=== PATIENT | female | born 1945 | race Caucasian/White ===

== ENCOUNTER 2020-01-29 10:48 | Emergency (ER) | payer MEDICARE, OTHER ==
[~2020-01-29] VITALS: Ht 167.6 cm; Wt 52.6 kg
[2020-01-29] MEDS ORDERED: ATIVAN2 MG PO (11:08)
[2020-01-29] MEDS ORDERED: LOVASTATIN 20 M20 MG PO (11:08)
[2020-01-29] MEDS ORDERED: LISINOPRIL-HCT1 EAC2 PO (11:08)
[2020-01-29] MEDS ORDERED: LEVO-T100 MCG PO (11:09)
[2020-01-29] MEDS ORDERED: NORVASC 2.5 MG2.5 M1 PO (11:09)
[2020-01-29] MEDS ORDERED: AZULFIDINE500 MG PO (11:09)
[2020-01-29] MEDS ORDERED: IBUPROFEN 600600 M1 PO (11:10)
[2020-01-29] MEDS ORDERED: ASA81BEC PO (11:10)
[2020-01-29] MEDS ORDERED: PAXIL40 MG PO (11:10)
[2020-01-29 11:23] LABS: ABSOLUTE BASOPHILS 0.1 thou/uL (0.0-0.2); ABSOLUTE LYMPHOCYTES 1.4 thou/uL (0.8-5.3); ABSOLUTE MONOCYTES 0.3 thou/uL (0.0-1.2); ABSOLUTE NEUTROPHILS 3.2 thou/uL (1.6-8.1); EOSINOPHILS 0.3 %; HEMATOCRIT 38.6 % (37.0-47.0); HEMOGLOBIN 12.8 gm/dL (12.0-15.0); MCH 28.4 pg (26.0-34.0); MCHC 33.2 g/dL (28.0-37.0); MCV 85.6 fL (80.0-100.0); MONOCYTES 6.6 %; MPV 7.1 fl. (7.2-11.1); NUCLEATED RBCS 0 /100WBC; PLATELET COUNT* 270 thou/uL (150-400); POLYS 64.1 %; RBC 4.51 mil/uL (4.20-5.00); RDW-CV 14.7 % (10.5-14.5); WBC 5.1 thou/uL (4.0-11.0)
[2020-01-29 11:36] LABS: CALCIUM 10.5 mg/dL (8.5-10.1); CREATININE 0.8 mg/dL (0.6-1.3); POTASSIUM 4.3 mmol/L (3.5-5.1)
[2020-01-29 11:40] LABS: ALBUMIN 3.4 g/dL (3.4-5.0); TOTAL BILIRUBIN 0.4 mg/dL (<0.1-1.0); TOTAL PROTEIN 7.8 g/dL (6.4-8.2)
[2020-01-29] MEDS ORDERED: NORCO 5-325 TA1 EAC2 PO (13:03)
[2020-01-29] MEDS ORDERED: ZOFRAN ODT4 MG SUBLING (13:03)
[2020-01-29 13:23] LABS: URINE BILIRUBIN NEGATIVE (Negative); URINE BLOOD TRACE (Negative); URINE CLARITY CLEAR; URINE COLOR YELLOW; URINE GLUCOSE-RANDOM NEGATIVE (Negative); URINE KETONES NEGATIVE (Negative); URINE LEUKOCYTES-REFLEX NEGATIVE (Negative); URINE NITRITE-REFLEX NEGATIVE (Negative); URINE PROTEIN NEGATIVE (Negative); URINE UROBILINOGEN 0.2 E.U./dl (0.2-1.0)
[2020-01-29 13:27] VITALS: BP 137/61
--- NOTE | 2020-01-29 17:21 | EKG ---
[place] [address] ELECTROCARDIOGRAM REPORT Name: ANN-MARIE JOHNSON Room: [facility]#: [id number] Admission: 01/29/20 Attend Phys: Discharge: 01/29/20 Date of : 45 Date of Service: 01/29/20 1120 Report #: [id number] THIS REPORT FOR: //name// [facility] ED Test Date: 2020-01-29 Test Time: 11:20:24 Pat Name: ANN-MARIE JOHNSON Department: Room: Gender: Multi Skilled Operator: RUIZ : 1945 Requested By: Mehdi Cronin Order Number: [id number] MD: Vladislav Felix Measurements Intervals [place] Rate: 64 P: 4 MT: 152 QRS: 0 QRSD: 88 T: 30 QT: 421 QTc: 435 Interpretive Statements Sinus rhythm No previous ECG available for comparison Electronically Signed On 01-29-2020 17:21:47 ANIMAL PHYSIOLOGIST by Vladislav Felix [email or web address] <ELECTRONICALLY SIGNED> By: Vladislav Felix MD, LOCATED WITHIN [facility] 01/29/20 1721 1120 Vladislav Felix MD, FACC /EPI
== END 2020-01-29 13:29 | disposition home or self-care (01) ==
LOC: M.ERS 10:48
PROVIDERS: Family Medicine
DX: K59.00 Constipation, unspecified (principal); Z20.828 Contact with and (suspected) exposure to other viral communicable diseases; R11.2 Nausea with vomiting, unspecified; I10 Essential (primary) hypertension; E78.00 Pure hypercholesterolemia, unspecified; E03.9 Hypothyroidism, unspecified; Z79.899 Other long term (current) drug therapy; Z79.82 Long term (current) use of aspirin; Z88.8 Allergy status to other drugs, medicaments and biological substances; Z88.6 Allergy status to analgesic agent

== ENCOUNTER 2020-01-31 09:16 | Inpatient (IN) | payer MEDICARE, OTHER ==
[~2020-01-31] VITALS: Ht 167.6 cm; Wt 55.2 kg
[~2020-01-31 09:16] MED LIST: ASA81BEC PO; ATIVAN2 MG PO; AZULFIDINE500 MG PO; IBUPROFEN 600600 M1 PO; LEVO-T100 MCG PO; LISINOPRIL-HCT1 EAC2 PO; LOVASTATIN 20 M20 MG PO; NORCO 5-325 TA1 EAC2 PO; NORVASC 2.5 MG2.5 M1 PO; PAXIL40 MG PO; ZOFRAN ODT4 MG SUBLING
[2020-01-31 09:24] VITALS: BP 140/76
[2020-01-31 09:40] LABS: ABSOLUTE BASOPHILS 0.1 thou/uL (0.0-0.2); ABSOLUTE EOSINOPHILS 0.1 thou/uL (0.0-0.7); ABSOLUTE LYMPHOCYTES 1.8 thou/uL (0.8-5.3); ABSOLUTE MONOCYTES 0.8 thou/uL (0.0-1.2); ABSOLUTE NEUTROPHILS 4.4 thou/uL (1.6-8.1); BASOPHILS 0.7 %; EOSINOPHILS 0.8 %; HEMATOCRIT 39.5 % (37.0-47.0); HEMOGLOBIN 13.6 gm/dL (12.0-15.0); MCH 29.3 pg (26.0-34.0); MCHC 34.4 g/dL (28.0-37.0); MCV 85.4 fL (80.0-100.0); MONOCYTES 11.1 %; MPV 7.1 fl. (7.2-11.1); NUCLEATED RBCS 0 /100WBC; PLATELET COUNT* 277 thou/uL (150-400); POLYS 62.4 %; RBC 4.63 mil/uL (4.20-5.00); RDW-CV 14.5 % (10.5-14.5); WBC 7.1 thou/uL (4.0-11.0)
[2020-01-31 09:51] LABS: CALCIUM 10.6 mg/dL (8.5-10.1); CREATININE 0.8 mg/dL (0.6-1.3); POTASSIUM 4.4 mmol/L (3.5-5.1)
[2020-01-31 09:55] LABS: ALBUMIN 3.4 g/dL (3.4-5.0); TOTAL BILIRUBIN 0.5 mg/dL (<0.1-1.0); TOTAL PROTEIN 7.9 g/dL (6.4-8.2)
[2020-01-31 12:59] LABS: URINE BLOOD TRACE (Negative); URINE CLARITY CLEAR; URINE COLOR YELLOW; URINE GLUCOSE-RANDOM NEGATIVE (Negative); URINE LEUKOCYTES-REFLEX NEGATIVE (Negative); URINE NITRITE-REFLEX NEGATIVE (Negative); URINE PROTEIN NEGATIVE (Negative); URINE SPECIFIC GRAVITY >= 1.030 (1.005-1.030); URINE UROBILINOGEN 0.2 E.U./dl (0.2-1.0)
[2020-01-31 13:02] LABS: ICTOTEST (BILI CONFIRMATORY) Negative (Negative); URINE BILIRUBIN 2+ (Negative); URINE KETONES 3+ (Negative)
[2020-01-31 13:35] VITALS: BP 169/80
[2020-01-31 16:05] VITALS: BP 170/72
--- NOTE | 2020-01-31 18:07 | NUR ---
PATIENT ARRIVED FROM ER THIS AFTERNOON. PATIENT SETTLED TO ROOM. HISTORY, ASESSMENT AND VITALS COMPLETED AND DOCUMENTED. PATIENT HAS COMPLAINTS OF RUQ PAIN AND NAUSEA WITH PARTIAL RELIEF PROVIDED BY MEDICATION. PATIENT NAUSEATED WITH SMALL AMOUNTS OF CLEAR LIQUIDS. PATIENT IS UP WITH ASSIST. PATIENT DENIES ANY NEEDS AT THIS TIME. CALL LIGHT WITHIN REACH.
[2020-01-31 20:27] VITALS: BP 136/68
[2020-02-01 05:18] LABS: HEMATOCRIT 33.8 % (37.0-47.0); MCH 28.5 pg (26.0-34.0); MCHC 33.4 g/dL (28.0-37.0); MCV 85.3 fL (80.0-100.0); MPV 7.1 fl. (7.2-11.1); RBC 3.97 mil/uL (4.20-5.00); RDW-CV 14.2 % (10.5-14.5); WBC 5.3 thou/uL (4.0-11.0)
[2020-02-01 05:24] LABS: HEMOGLOBIN 11.3 gm/dL (12.0-15.0)
[2020-02-01 05:38] LABS: ALBUMIN 2.6 g/dL (3.4-5.0); CREATININE 0.8 mg/dL (0.6-1.3); MAGNESIUM 1.7 mg/dL (1.8-2.4); POTASSIUM 3.9 mmol/L (3.5-5.1); TOTAL BILIRUBIN 0.5 mg/dL (<0.1-1.0); TOTAL PROTEIN 6.3 g/dL (6.4-8.2)
[2020-02-01 07:47] VITALS: BP 136/79
--- NOTE | 2020-02-01 10:15 | NUR ---
PT.IN CHAIR AFTER GOING TO BATHROOM. SHE WAS ALERT AND ORIENTED. SAID SHE NORMALLY LIVES ALONE BUT HER ADULT GRANDSON IS STAYING WITH HER AT THIS TIME BECAUSE HE BROKE HIS FOOT AT WORK IN 3 PLACES. SHE WAS TAKING CARE OF HIM. SHE HAS A SON,ANGELIQUE AND DAUGHTER,CONNIE, THAT ARE SUPPORTIVE. NO USE OF DME. DRIVES AND IS NORMALLY INDEPENDENT. SHE WILL HAVE GALLBLADDER SURGERY TOMORROW. SHE IS CONCERNED,TEARFUL, NO BM X3-4 WEEKS. SHE IS AFRAID THEY MAY BE 'MISSING SOMETHING' IN HER TESTING. CONCERNS RELAYED TO VONNIE LARA.
--- NOTE | 2020-02-01 16:00 | NUR ---
PT'S SAT LOW IN 70'S ON RA. THEN DROPPED TO 69. 02 PUT ON AT 3L PER NC. AND SAT NOW 90%. TEXT TO DR. MDEELLIN AND ORDERS RECEIVED AND CARRIED OUT. WILL CONTINUE TO MONITOR.
[2020-02-01 16:14] VITALS: BP 98/54
--- NOTE | 2020-02-01 16:34 | EKG ---
[place] [address] ELECTROCARDIOGRAM REPORT Name: ANN-MARIE JOHNSON Room: [address] ADM IN M.R.#: [id number] Admission: 01/31/20 Attend Phys: Amelia Wade, Discharge: Date of : 45 Date of Service: 01/31/20 1219 Report #: [id number] THIS REPORT FOR: //name// [facility] ED Test Date: 2020-01-31 Test Time: 12:19:30 Pat Name: ANN-MARIE JOHNSON Department: Room: [facility] Gender: F Nurses Assistant: IWONA : 1945 Requested By: Mehdi Cronin Order Number: [id number] MD: Felipe Reyes Measurements Intervals [place] Rate: 56 P: 5 MA: 157 QRS: 9 QRSD: 95 T: 36 QT: 430 QTc: 416 Interpretive Statements Sinus rhythm Compared to ECG 01/29/2020 11:20:24 No significant changes Electronically Signed On 02-01-2020 16:34:23 STORAGE MANAGER by Felipe Reyes [email or web address] <ELECTRONICALLY SIGNED> By: Felipe Reyes MD, [facility] 02/01/20 1634 1219 1219 Felipe Reyes MD, [facility] /EPI
--- NOTE | 2020-02-01 18:09 | NUR ---
PT WAS SWABBED FOR STAT COVID. AND SWAB SENT TO LAB.
[2020-02-01 20:15] VITALS: BP 123/61
--- NOTE | 2020-02-01 21:30 | NUR ---
A&O X 4, PWD. LUNGS CLEAR, HEART TONES REG. +BS X 4 QUADS. PEDAL PULSES PRESENT NO EDEMA NOTED. C/O NOT HAVING BM X 3 WEEKS. ENEMA GIVEN WITH SOME RESULTS CONSISTENT THICK MUDDY BROWN STOOL. PT ALSO WANTED SOMETHING FOR ANXIETY AND WAS GIVEN ALPRAZOLAM 0.5MG AT 1352. AROUND 1600 SAT WAS IN 70'S THEN DROPPED TO 60'S. PUT ON 3L PER NC AND CAME BACK UP TO 90%. DR. MEDELLIN NOTIFIED AND NEW ORDERS OBTAINED AND CARRIED OUT. COVID STAT TEST DONE AND WAS NEGATIVE. C/O ABD PAIN AND RECEIVED 75MCG FENT WITH RELIEF. CALL LIGHT WITHIN REACH. WILL CONTINUE TO MONITOR.
--- NOTE | 2020-02-02 05:39 | NUR ---
PATIENT HAS REMAINED ALERT AND ORIENTED X 4 THROUGHOUT THE SHIFT AND RESTING QUIETLY ON HOURLY ROUNDS. HAS HAD 3 LIQUID BM'S THIS SHIFT AFTER ENEMA YESTERDAY. IVF'S AND ANTIBIOTICS PER ORDER. VITAL SIGNS STABLE ON 3L/MIN. O2 SATS 94-96%. NPO AT MIDNIGHT FOR SURGERY TODAY. RELATED TO LOW BLOOD SUGARS YESTERDAY A BEDSIDE CHECK WAS DONE THIS AM. [address]. [address]AGE [address] VERDIN WAS RECEIVED AT 0534 REGARDING NPO STATUS AND LOW BLOOD SUGAR. MAGNESIUM 1.7. REPLACEMENT IN PROGRESS. CONTINUE TO MONITOR.
[2020-02-02 07:50] VITALS: BP 166/64
[2020-02-02 09:25] LABS: HEMATOCRIT 32.6 % (37.0-47.0); HEMOGLOBIN 10.9 gm/dL (12.0-15.0); MCH 28.7 pg (26.0-34.0); MCHC 33.4 g/dL (28.0-37.0); MCV 85.8 fL (80.0-100.0); MPV 7.6 fl. (7.2-11.1); RBC 3.8 mil/uL (4.20-5.00); RDW-CV 14.1 % (10.5-14.5); WBC 5.4 thou/uL (4.0-11.0)
[2020-02-02 09:34] LABS: ALBUMIN 2.3 g/dL (3.4-5.0); CREATININE 0.8 mg/dL (0.6-1.3); POTASSIUM 3.6 mmol/L (3.5-5.1); TOTAL BILIRUBIN 0.4 mg/dL (<0.1-1.0); TOTAL PROTEIN 5.2 g/dL (6.4-8.2)
--- NOTE | 2020-02-02 15:28 | NUR ---
PT TAKEN TO SURGERY VIA BED BY SURGERY RN AT 1528.
--- NOTE | 2020-02-02 19:01 | 2DMMODE ---
[place] [address] 2 D/M-MODE ECHOCARDIOGRAM Name: ANN-MARIE JOHNSON Room: [address] IN [facility]#: [id number] Admission: 01/31/20 Attend Phys: Amelia Wade, Discharge: Date of : 45 Date of Service: 02/02/20 190 Report #: [id number] THIS REPORT FOR: cc: Ayanna Tineo. Ayanna Kasper. Jackson Fay MD [facility] ~ APPROVED REPORT Study performed: 02/02/2020 14:48:38 EXAM: Comprehensive 2D, Doppler, and color-flow Echocardiogram Patient Location: In-Patient Room #: 315 Status: routine BSA: 1.62 Rhythm: NSR Other Information Study Quality: Good Indications Dyspnea 2D Dimensions IVSd: 7.79 (7-11mm) LVOT Diam: 21.88 (18-24mm) LVDd: 42.99 mm PWd: 10.41 (7-11mm) Ascending Ao: 35.00 (22-36mm) LVDs: 31.62 (25-40mm) Aortic Root: 31.63 mm Volumes Left Atrial Volume (Systole) LA ESV Index: 22.50 mL/m2 Aortic Valve AoV Peak Cain.: 1.33 m/s AO Peak Gr.: 7.07 mmHg LVOT Max P.18 mmHg AO Mean Gr.: 3.43 mmHg LVOT Mean P.41 mmHg LVOT Max V: 0.89 m/s AO V2 VTI: 27.80 cm LVOT Mean V: 0.54 m/s KONRAD (VTI): 2.74 cm2 LVOT V1 VTI: 20.22 cm AI Cassia: 2.30 m/s2 AI PHT: 643.15 [place] [address] 2 D/M-MODE ECHOCARDIOGRAM Name: ANN-MARIE JOHNSON Room: [address] IN .R.#: [id number] Admission: 01/31/20 Attend Phys: Amelia Wade, Discharge: Date of : 45 Date of Service: 02/02/20 1901 Report #: [id number] Mitral Valve E/A Ratio: 0.70 MV Decel. Time: 413.67 ms MV E Max Cain.: 0.49 m/s MV PHT: 119.96 ms MVA (PHT): 1.83 cm2 TDI E/Lateral E': 6.13 E/Medial E': 6.13 Medial E' Cain.: 0.08 m/s Lateral E' Cain.: 0.08 m/s Pulmonary Valve PV Peak Cain.: 1.11 m/s PV Peak Gr.: 4.92 mmHg Tricuspid Valve RAP Estimate: 5.00 mmHg TR Peak Gr.: 23.98 mmHg RVSP: 28.00 mmHg PA Pressure: 28.00 mmHg Left Ventricle The left ventricle is normal size. There is normal LV segmental wall motion. There is normal left ventricular wall thickness. Left ventricular systolic function is normal. LVEF is 55-60%. Grade I - abnormal relaxation pattern. Right Ventricle The right ventricle is normal size. The right ventricular systolic function is normal. Atria The left atrium size is normal. The right atrium size is normal. Aortic Valve Mild aortic valve sclerosis. Mild aortic regurgitation. There is no aortic valvular stenosis. Mitral Valve The mitral valve is normal in structure. Trace mitral regurgitation. No evidence of mitral valve stenosis. Tricuspid Valve The tricuspid valve is normal in structure. Trace tricuspid regurgitation. [place] [address] 2 D/M-MODE ECHOCARDIOGRAM Name: ANN-MARIE JOHNSON Room: [address] IN [facility]#: [id number] Admission: 01/31/20 Attend Phys: Amelia Wade, Discharge: Date of : 45 Date of Service: 02/02/20 190 Report #: [id number] Pulmonic Valve The pulmonary valve is normal in structure. Mild pulmonic regurgitation. Great Vessels The aortic root is normal in size. IVC is normal in size and collapses >50% with inspiration. Pericardium There is no pericardial effusion. <Conclusion> The left ventricle is normal size. There is normal left ventricular wall thickness. Left ventricular systolic function is normal. LVEF is 55-60%. Grade I - abnormal relaxation pattern. Mild aortic valve sclerosis. Mild aortic regurgitation. Trace mitral regurgitation. Trace tricuspid regurgitation. No pulmonary hypertension. IVC is normal in size and collapses >50% with inspiration. <ELECTRONICALLY SIGNED> By: Jackson Leach MD, FACC 02/02/201900 00 00 Jackson Leach MD, FACC /INF
--- NOTE | 2020-02-02 20:08 | NUR ---
A&OX 4, PWD, LUNGS CLEAR UPPER LOBES AND DIMINISHED LOWER LOBES. ON 3L PER NC WITH 02 SAT'S 96%. HEART RATE REGULAR. +BS X 4 QUADS. PEDAL PULSES PRESENT, NO EDEMA NOTED. IV LEFT FOREARM X 2. BOTH FLUSHED AND PATENT. IV FLUIDS DC'D TODAY. PAIN MED GIVEN X 1 SEE MAY FOR TIME. ALSO GAVE ANXIETY MED THIS AM. CHECKING BLOOD SUGARS THEY HAVE DROPPED PT IS NPO. BREAKFAST 67 DID COME UP TO 93 AFTER JUICE GIVEN. LUNCH [address] MEDELLIN NOTIFIED NO NEW ORDERS OBTAINED. TO SURGERY AT 1528.
--- NOTE | 2020-02-02 20:13 | NUR ---
PT STILL NOT BACK FROM SURGERY.
[2020-02-02 22:43] VITALS: BP 143/77
[2020-02-03 01:06] VITALS: BP 171/78
--- NOTE | 2020-02-03 05:01 | NUR ---
RETURNED FROM SURGERY AT 2230. PAIN IS STILL AN ISSUE. SHE IS RECEIVING IBRUPROFEN AND HYDROCODONE FOR PAIN. SHE IS ON 3L - NC OXYGEN WITH CAPNO. ALERT AND ORIENTED. STANDBY ASSIST TO BEDSIDE COMMODE. 4 LAP SITES WITH DERMABOND. CLEAR LIQUID DIET. SOME ANXIETY BUT IS MANAGING TO REST AT THIS TIME.
[2020-02-03 05:15] LABS: HEMATOCRIT 37.6 % (37.0-47.0); HEMOGLOBIN 12.5 gm/dL (12.0-15.0); MCH 28.1 pg (26.0-34.0); MCHC 33.2 g/dL (28.0-37.0); MCV 84.8 fL (80.0-100.0); MPV 7.4 fl. (7.2-11.1); RBC 4.43 mil/uL (4.20-5.00); RDW-CV 14.5 % (10.5-14.5); WBC 6.2 thou/uL (4.0-11.0)
[2020-02-03 05:57] LABS: ALBUMIN 2.8 g/dL (3.4-5.0); CALCIUM 9.4 mg/dL (8.5-10.1); CREATININE 0.8 mg/dL (0.6-1.3); POTASSIUM 3.8 mmol/L (3.5-5.1); TOTAL BILIRUBIN 0.4 mg/dL (<0.1-1.0)
--- NOTE | 2020-02-03 07:05 | NUR ---
CHANGE OF SHIFT REPORT GIVEN ASSUMED PATIENT CARE
[2020-02-03 08:00] VITALS: BP 132/71
[2020-02-03 12:25] VITALS: BP 147/78
--- NOTE | 2020-02-03 15:00 | NUR ---
PT.UP TO BATHROOM BY SELF AND ABLE TO GET IN BED BY SELF. C/O R SHOULDER PAIN. EXPLAINED ABOUT AIR INSUFFLATION DURING LAP BERNA PROCEDURE. SHE SAID THE TOLD ME THAT. SHE SAID SHE HAS A 'LUMP' ON HER ABDOMEN WHICH WAS NOT THERE EARLIER. TOLD RNMERLY ABOUT THIS AND SHE LOOKED AT IT. PT.AND DAUGHTER STATED THEY FELT SHE WAS NOT READY FOR DISCHARGE YET. DISCUSSED HOME HEALTH AT DISCHARGE AND THEY WERE AGREEABLE. RN TO NOTIFY OF ABOVE.
[2020-02-03 17:00] VITALS: BP 147/67
[2020-02-03 20:50] VITALS: BP 134/64
--- NOTE | 2020-02-04 12:30 | NUR ---
PT.TO DISCHARGE TODAY. NO DISCHARGE NEEDS IDENTIFIED.
[2020-02-04 13:29] VITALS: BP 147/81
--- NOTE | 2020-02-04 14:15 | NUR ---
PATIENT DISCHARGED TO HOME. DISCHARGE PAPERS REVIEWED AND SIGNED. PRESCRIPTION AND INFORMATION SHEETS GIVEN. IV REMOVED. PATIENT PACKED OWN BELONGINGS. PATIENT DENIES ANY FURTHER NEEDS. PATIENT TAKEN BY WHEELCHAIR TO EXIT. LEFT WITH DAUGHTER.
[2020-02-04 14:30] VITALS: BP 147/81
--- NOTE | 2020-02-05 21:18 | OP ---
[address] [address] OPERATIVE REPORT Name: ALEXANN-MARIE M Room: [address] IN M.R.#: [id number] Admission: 01/31/20 Attend Phys: Amelia Wade MD Discharge: 02/04/20 Date of : 45 Report #: [id number] THIS REPORT FOR: //name// cc: Ayanna Tineo. Eliska. ETHAN Kasper ~ CC: Eliska. Noman Wade DICTATED BY: Ananth Doss DO DATE OF SERVICE: 02/02/2020 PREOPERATIVE DIAGNOSIS: Acute cholecystitis. POSTOPERATIVE DIAGNOSIS: Acute cholecystitis. SURGEON: Eleno Martinez DO GREASER HELPER: Ananth Doss, PGY5 and MS Sabino4. OPERATION PERFORMED: Laparoscopic cholecystectomy, intraoperative cholangiogram and surgeon interpretation of images. ANESTHESIA: General and local. ESTIMATED BLOOD LOSS: 30 mL. SPECIMEN: Gallbladder. COMPLICATIONS: None. INDICATIONS: The patient is a 74-year-old female who presented to the Emergency Department with increasing abdominal pain. On workup, she was found to have cholelithiasis with gallbladder distention, gallbladder wall thickening. The gallstone was approximately 2 cm. She had a sonographic Hutchins sign. She was informed of the risks and benefits of laparoscopic cholecystectomy and due to previous extensive surgical history and history of Crohn's disease, she was informed of the high likelihood of an open procedure. Risks included, but not limited to bleeding, infection, bowel injury, bile duct injury, hernia formation, need for reoperation, need for open procedure, chronic diarrhea were discussed. The patient voiced understanding and elected to proceed with surgery. DESCRIPTION OF PROCEDURE: After informed consent was obtained, the patient was brought to the operating room and placed in supine position. SCDs were on and running. Preoperative Zosyn had [place] [address] OPERATIVE REPORT Name: ALEXANN-MARIE M Room: [address]#: [id number] Admission: 01/31/20 Attend Phys: Amelia Wade MD Discharge: 02/04/20 Date of : 45 Report #: [id number] anesthesia was administered with an ET tube. The patient was prepped and draped in the usual sterile fashion. A surgical pause was held to confirm proper patient and procedure. An infraumbilical vertical 2 cm incision was made with 11 blade. Dissection was bluntly carried down to the fascia, which was elevated with 2 Kochers and incised using cautery. The peritoneum was elevated with 2 Kellys and incised using Metzenbaum scissors. A finger was introduced into the abdomen. There was some intra-abdominal adhesions palpated. The Simran trocar was introduced adjacent to these. The abdomen was insufflated. A 0 Vicryl stay suture was placed on either side of the fascia. The abdomen was insufflated. Camera was introduced. There were some midline adhesions with small bowel involved. These were not injured during entry. The patient was positioned head up, right side up. A 5 mm port was placed in the epigastrium under direct visualization. The camera was placed from this top port and looked down. Again, there were extensive midline adhesions all the way down to and past our Simran trocar inferiorly; however, there was no bowel injury visualized, camera was reintroduced to the lower midline abdominal trocar. Two additional 5 mm ports in the right upper quadrant were placed under direct visualization. The gallbladder was visible. It was thick-walled, tense and edematous. Gallbladder was elevated. There were some omental adhesions to the lateral liver and lateral gallbladder. These were taken down using cautery. A locking grasper was used to elevate the gallbladder over the liver. The peritoneum overlying the medial hepatocystic triangle was incised using cautery. The peritoneum was edematous and quite thick. Blunt dissection was used to develop the structures and the hepatocystic triangle. There was extensive collateral vessels that were branches of veins and the artery, which required a slow and tedious dissection. The cystic duct was apparent and was clearly seen coursing into the common bile duct. Blunt dissection with a [place] was used to encircle the cystic duct. Due to the somewhat unclear nature of the remaining several structures, a Bahena clamp was used to clamp the cystic duct and gallbladder neck junction. The catheter was advanced into the distal cystic duct. A cholangiogram was performed, which identified the cystic duct, common bile duct, common hepatic duct, right and left bile ducts. There was prompt filling of the duodenum. However, the common bile duct was quite dilated and there was a slight narrowing of the distal common bile duct. Once the cholangiogram was complete, the catheter was removed. The bahena clamp was released and removed. The cystic duct and cystic artery were completely encircled and identified. The remaining small vascular branches were taken down using cautery. A critical view of safety was obtained with 2 and only two structures entering the gallbladder, the cystic duct and cystic artery. Laparoscopic clip opener tender was used to triply clip the duct and doubly clipped the artery. There were some small bleeding branches of large veins that were clipped during the dissection. Laparoscopic meghan were used to divide the cystic duct and cystic artery. Gallbladder was then elevated and dissected free from the liver bed using cautery. Once completely freed, the gallbladder was placed within an EndoCatch bag and placed aside. The gallbladder fossa was [facility] [address] [place] [address] OPERATIVE REPORT Name: ALEXANN-MARIE M Room: [address] IN [facility].#: [id number] Admission: 01/31/20 Attend Phys: Amelia Wade MD Discharge: 02/04/20 Date of : 45 Report #: [id number] identified. Cautery was used for hemostasis. The right upper quadrant was thoroughly irrigated and suctioned. Clips were inspected. The cystic duct stump was dry and did not have any biliary leakage. The cystic artery was hemostatic. Once the right upper quadrant was completely irrigated and suctioned with a clear effluent, the patient was positioned supine. Right upper quadrant was once more suctioned. All ports were removed under direct visualization. The abdomen was desufflated. The gallbladder was removed through the umbilical incision. Previous stay sutures were elevated. A single [id number] using 0 Vicryl was used to close the fascia. All skin was closed using 4-0 Monocryl. Wounds were cleansed and dressed with Dermabond. Local anesthetic was injected at all port sites. All counts were correct. The patient was emerged from anesthesia and transferred to the PACU in stable condition. <ELECTRONICALLY SIGNED> By: Eleno Martinez DO 02/05/208 30 2217Jojared Martinez DO /jose maria
--- NOTE | 2020-02-08 14:06 | PATH ---
[address] [address] PATHOLOGY RPT PROCEDURE Name: KAMILLE ART Room: [address] IN M.R.#: [id number] Admission: 01/31/20 Date of : 45 Discharge: 02/04/20 Report #: [id number] Path Case #: [id number] L[facility] Accession Number: [id number] . 01 Material submitted: . gallbladder - GALLBLADDER AND CONTENTS . 01 Clinician provided ICD-10: K81.0 E44.0 . 01 Clinical history: . ABDOMINAL PAIN, CHOLECYSTITIS . 02 Diagnosis: Gallbladder and contents: - Chronic cholecystitis with mural fibrosis and cholelithiasis. . (LYLE:mml; 02/05/2020) QL 02/05/2020 1650 Local . 02 Electronically signed: . Terry Steward MD, Pathologist NPI- [id number] . 01 Gross description: . The specimen is received in formalin labeled "Kamille Art, gallbladder and contents" and consists of an intact pink-coughlin and focally hemorrhagic gallbladder measuring 10.4 x 3.8 x 2.8 cm. The margin is inked black. Opening reveals a lumen filled with tenacious gallbladder sludge and a single oval dark green calculus measuring 3.4 cm. The mucosa is pink-coughlin and granular to fibrotic with hemorrhage and an average wall thickness of 0.3 cm. No masses are identified. Printing Equipment Mechanic sections are submitted in A1. (SDY; 02/04/2020) SYU/SYU 02/04/2020 1412 Local . 02 Pathologist provided ICD-10: K80.10 . 02 CPT . 212072 Specimen Comment: A courtesy copy of this report has been sent to [phone] Specimen Comment: [phone], Specimen Comment: Report sent to ,DR NAZARIO / DR WATSON Specimen Comment: A duplicate report has been generated [place] [address] PATHOLOGY RPT PROCEDURE Name: KIP ARTDINORAH Moran Room: [address] DIS IN M.R.#: [id number] Admission: 01/31/20 Date of : 45 Discharge: 02/04/20 Report #: [id number] Path Case #: [id number] Performed at: [address], [place], [place] [id number] MD Johann Cruz MD Phone: [phone] Performed at: 02 [facility] [address], [place], [place] [id number] MD Terry Steward MD Phone: [phone]
== END 2020-02-04 14:15 | disposition home or self-care (01) | DRG 417 ==
LOC: M.ERS 09:16 → M.TBA-ER 12:22 → M.3W 12:22
PROVIDERS: Family Medicine; Surgery; ADMIT Internal Medicine; ATTEND Internal Medicine
PROC: 0FT44ZZ Resection of Gallbladder, Percutaneous Endoscopic Approach (ICD-10-PCS; principal; 2020-02-02)
PROC: BF121ZZ Fluoroscopy of Gallbladder using Low Osmolar Contrast (ICD-10-PCS; principal; 2020-02-02)
DX: K80.00 Calculus of gallbladder with acute cholecystitis without obstruction (principal); J18.9 Pneumonia, unspecified organism; J96.01 Acute respiratory failure with hypoxia; I50.31 Acute diastolic (congestive) heart failure; E44.0 Moderate protein-calorie malnutrition; K50.90 Crohn's disease, unspecified, without complications; Z68.1 Body mass index [BMI] 19.9 or less, adult; E78.00 Pure hypercholesterolemia, unspecified; E03.9 Hypothyroidism, unspecified; F17.210 Nicotine dependence, cigarettes, uncomplicated; K59.00 Constipation, unspecified; I11.0 Hypertensive heart disease with heart failure; E78.5 Hyperlipidemia, unspecified; F41.9 Anxiety disorder, unspecified; J20.9 Acute bronchitis, unspecified; Z20.828 Contact with and (suspected) exposure to other viral communicable diseases; Z90.49 Acquired absence of other specified parts of digestive tract; Z88.8 Allergy status to other drugs, medicaments and biological substances; Z88.6 Allergy status to analgesic agent; Z91.041 Radiographic dye allergy status; Z79.82 Long term (current) use of aspirin; Z79.899 Other long term (current) drug therapy